=== PATIENT | male | born 1995 | race Hispanic/Latino ===

== ENCOUNTER 2018-10-02 12:09 | Outpatient (CLI) | payer OTHER ==
--- NOTE | 2018-10-02 13:12 | ULT ---
Scrotal sonogram with duplex evaluation HISTORY: Left testicular pain. FINDINGS: Right testicle is 4.0 cm and left is 4.3 cm. Scattered very few tiny hyperechoic foci are a ssociated with the parenchyma of each testicle. No soft tissue masses. Good color and spectral Doppler flow. No extra fluid within the scrotum. IMPRESSION: No evidence of testicular mass or torsion. Very mild testicular microlithiasis.
== END 2018-10-02 12:10 | disposition home or self-care (01) ==
LOC: BICULT 12:09
PROVIDERS: ATTEND Urology
DX: N50.812 Left testicular pain (principal); N50.89 Other specified disorders of the male genital organs
CPT/HCPCS: 76870; 93976

== ENCOUNTER 2018-11-21 08:58 | Outpatient (CLI) | payer OTHER ==
[2018-11-21] MEDS ORDERED: ISOVUE-370 76%-LOCM 1 ML ONE (10:49)
--- NOTE | 2018-11-21 11:33 | CT ---
CT abdomen and pelvis with and without IV contrast HISTORY: Microhematuria. FINDINGS: Each renal collecting system, ureter, and urinary bladder are decompressed without stone ap parent. No filling defects are evident within the urinary system on the delayed images. The lung bases are clear. No free air or free fluid. Nonenlarged, nonspecific lymph nodes scattered t hroughout the right lower quadrant and retroperitoneum. Solid organs are intact. IMPRESSION: No visible cause for hematuria. No significant abnormalities are demonstrated.
== END 2018-11-21 08:59 | disposition home or self-care (01) ==
LOC: BICCT 08:58
PROVIDERS: ATTEND Urology
DX: R31.29 Other microscopic hematuria (principal)
CPT/HCPCS: 74178; Q9966